=== PATIENT | male | born 1960 | race Hispanic/Latino ===

== ENCOUNTER 2016-10-01 17:20 | Emergency (ER) | payer SELFPAY ==
--- NOTE | 2016-10-01 17:46 | ED.PDOC ---
History of Present Illness - General Chief Complaint: Cardiovascular Problem Stated Complaint: low back /neck pain Time Seen by Provider: 10/01/16 17:44 Source: patient - History of Present Illness Initial Comments: Jaison Gordon 56 y/o male stated that he had dull low back pains thursday which went away then yesterday had started having neck pains radiating to back of his head .No Nausea/vomiting ,blurry vision or chest pains.He stated no chronic medical problems. Timing/Duration: intermittent, resolved prior to arrival, other - see hpi Improving Factors: nothing Worsening Factors: nothing Associated Symptoms: denies symptoms Allergies/Adverse Reactions: Allergies NO KNOWN ALLERGY Allergy (Verified 10/01/16 17:48) Home Medications: Ambulatory Orders NK [NK] 10/01/16 Review of Systems - Review of Systems Constitutional: States: no symptoms reported EENTM: States: no symptoms reported Respiratory: States: no symptoms reported Cardiology: States: no symptoms reported Gastrointestinal/Abdominal: States: no symptoms reported Genitourinary: States: no symptoms reported Musculoskeletal: States: see HPI, muscle pain Skin: States: no symptoms reported Neurological: States: no symptoms reported Endocrine: States: no symptoms reported Family Medical History - Family History Mother Hx Family Hypertension: Yes Hx Family Stroke: Yes - dad-? brain aneurysm Physical Exam - Physical Exam General Appearance: Alert, Comfortable, No apparent distress Eye Exam: bilateral normal, bilateral other - no papilledema Ears, Nose, Throat: hearing grossly normal, normal ENT inspection Respiratory: chest non-tender, lungs clear, normal breath sounds Cardiovascular/Chest: normal peripheral pulses, regular rate, rhythm, no murmur Peripheral Pulses: radial,right: 1+, radial,left: 1+ Gastrointestinal/Abdominal: normal bowel sounds, non tender, soft Back Exam: normal inspection, no CVA tenderness, no vertebral tenderness Extremity: normal range of motion, non-tender, no pedal edema, no calf tenderness Neurologic: no motor/sensory deficits, alert, normal mood/affect Skin Exam: normal color, warm/dry Lymphatic: no adenopathy Progress - Progress Progress: 10/01/16 22:22 Vital Signs 10/01/16 10/01/16 10/01/16 17:25 17:35 19:09 Temperature 98.5 F Pulse Rate [ 113 H 110 H Left Radial] Pulse Rate [ 92 H 94 H monitor] Respiratory 20 16 16 Rate Blood Pressure 214/106 200/109 199/93 [Left Arm] O2 Sat by Pulse 99 99 99 Oximetry Laboratory Tests 10/01/16 10/01/16 10/01/16 18:01 18:01 19:00 WBC 5.7 RBC 3.39 L Hgb 10.1 L Hct 30.0 L MCV 88.6 MCH 29.7 MCHC 33.5 RDW 12.7 Plt Count 184 MPV 8.0 Absolute Neuts (auto) 4.20 Absolute Lymphs (auto) 0.90 L Absolute Monos (auto) 0.40 Absolute Eos (auto) 0.20 Absolute Basos (auto) 0.00 Neutrophils % 73.9 Lymphocytes % 15.3 L Monocytes % 7.4 Eosinophils % 2.6 Basophils % 0.8 PT 10.2 INR 0.900 PTT (SP) 27.6 D-Dimer, Quantitative < 200 Sodium 134 L Potassium 4.2 Chloride 103 Carbon Dioxide 19 L Anion Gap 16.2 BUN 70 H Creatinine 6.65 H* BUN/Creatinine Ratio 10.5 Random Glucose 137 H Serum Osmolality 290.9 Calcium 8.5 Magnesium 2.3 Total Bilirubin 0.5 Direct Bilirubin < 0.1 Indirect Bilirubin 0.4 AST 18 ALT 13 Alkaline Phosphatase 55 Creatine Kinase 169 CK-MB (CK-2) 4.0 CK-MB (CK-2) % Not Reportable Troponin I < 0.02 B-Natriuretic Peptide 90.3 Serum Total Protein 7.2 Albumin 4.0 Urine Color Colorless Urine Appearance Cloudy Urine pH 6.5 Ur Specific [place] 1.010 Urine Protein 100 H Urine Glucose (UA) Negative Urine Ketones Negative Urine Blood Moderate H Urine Nitrite Negative Urine Bilirubin Negative Urine Urobilinogen 0.2 Ur Leukocyte Esterase Moderate H Urine RBC 5-10 H Urine WBC 20-30 H Ur Epithelial Cells 0-1 Urine Bacteria 3+ H - EKG/XRAY/CT CT Ordered: Yes - abd /pelvis lencho. nephrolithiasis,gas left ureter,urinary bladder Departure - Departure Clinical Impression: Renal failure (ARF), acute on chronic Qualifiers: Acute renal failure type: with other specified pathological lesion Chronic kidney disease stage: stage 4 (severe) Qualified Code(s): N17.8 - Other acute kidney failure Time of Disposition: 01:36 Disposition: Transfer to Hospital Condition: Fair Departure Forms: Patient Portal Self Enrollment Home Medications: Ambulatory Orders NK [NK] 08/09/17 Transfer to Outside Facility - Transfer Information Accepting Facility: [facility] Reason for Transfer: required specialist not available
[2016-10-01] MEDS ORDERED: ASPIRIN TABLET 325 MG TAB PO ONE (17:48)
[2016-10-01] MEDS ORDERED: NITROGLYCERIN 0.4 MG 25 EA TAB SL ONE (17:48)
--- NOTE | 2016-10-01 18:15 | RAD ---
EXAM DESCRIPTION: Chest,2 Views CLINICAL HISTORY: 56 years Male pain COMPARISON: None. FINDINGS: The cardiomediastinal silhouette appears unremarkable. No consolidating infiltrates or pleural effusions. No pneumothorax. There is a 7 mm nodular density overlying the anterior fifth rib on the right. Findings may reflect a nipple shadow. Recommend films with nipple markers. Underlying pulmonary nodule is not excluded. IMPRESSION: No acute abnormality is identified. Nodule in the right lung overlying the anterior fifth rib. Recommend films with nipple markers. Electronically signed by: Nu Mckay 10/01/2016 6:14 PM CDT
[2016-10-01] MEDS ORDERED: SODIUM BICARBONATE IVS PRN (19:09)
[2016-10-01] MEDS ORDERED: NACL 0.45% IVS PRN (19:09)
[2016-10-01] MEDS ORDERED: DEX 5% IVS PRN (19:09)
[2016-10-01] MEDS ORDERED: amLODIPine BESYLATE 5 MG TAB PO ONE (19:11)
[2016-10-01] MEDS ORDERED: LABETALOL INJ 5 MG/ML VIAL IV ONE ×2 (19:11→22:23)
[2016-10-01] MEDS ORDERED: DEX 5% W/NACL 0.45% 1000ML 1,000 ML IVS ONE (19:16)
[2016-10-01] MEDS ORDERED: SODIUM BICARBONATE SYRINGE 50 MEQ/50 ML SYG IV ONE (19:18)
[2016-10-01 19:38] VITALS: TEMP 98.5
--- NOTE | 2016-10-01 19:44 | CT ---
EXAM DESCRIPTION: Abdomen/Pelvis w/o Contrast CLINICAL HISTORY: 56 years Male renal failure/htn COMPARISON: None. TECHNIQUE: Contiguous axial images obtained through the abdomen and pelvis without IV contrast. Reformatted images obtained. This exam was performed according to our department optimization program which includes automated exposure control, adjustment of the mA and/or kv according to patient size and/or use of iterative reconstruction technique. FINDINGS: The lung bases are clear. There is a simple cyst in the inferior right lobe of the liver measuring 2 cm. The spleen and pancreas appear unremarkable. No adrenal masses. There is extensive scarring in the superior pole of the right kidney with multiple calculi. No evidence of hydronephrosis. Extensive staghorn calculi in the left kidney with gas in the renal collecting system. Findings may reflect infection or be related to instrumentation. Cystic dilatation in the inferior and superior poles left kidneys which may reflect caliectasis with areas of scarring present. No obstructive uropathy. Bladder gas which may related to infection or instrumentation. The gallbladder is visualized. No aneurysmal dilatation of the aorta. No bowel obstruction. No free pelvic fluid. IMPRESSION: Extensive bilateral renal calculi particularly on the left with large staghorn calculi There is gas in the urinary bladder and in the left renal collecting system. Question as a result of infection versus instrumentation. Pyonephrosis is not excluded Areas of scarring in the kidneys bilaterally with calyceal dilatation on the left which may be as a result of infundibular obstruction Electronically signed by: Nu Mckay 10/01/2016 7:43 PM CDT
[2016-10-01] MEDS ORDERED: MEROPENEM 500 MG in SODIUM CHL 0.9% 50ML MIN-BAG+ 50 ML IVPB ONE (20:44)
[2016-10-01] MEDS ORDERED: SODIUM CHL 0.9% 50ML MIN-BAG+ 50 ML IVPB ONE (21:26)
[2016-10-01] MEDS ORDERED: MEROPENEM 500 MG VIAL IVPB ONE (21:26)
[2016-10-02 01:19] VITALS: O2SAT 98
[2016-10-02] MEDS ORDERED: amLODIPine BESYLATE 5 MG TAB PO ONE (01:55)
[2016-10-02 02:37] VITALS: BP 159/84
== END 2016-10-02 02:37 | disposition short-term general hospital (02) ==
LOC: ER 17:20
DX: N20.0 Calculus of kidney (principal); I12.9 Hypertensive chronic kidney disease with stage 1 through stage 4 chronic kidney disease, or unspecified chronic kidney disease; N18.4 Chronic kidney disease, stage 4 (severe); N17.9 Acute kidney failure, unspecified
CPT/HCPCS: 36415; 71020; 74176; 80048; 80076; 81001; 82550; 82553; 83880; 84484; 85025; 85379; 85610; 85730; 87086; 87088; 87186; 93005; J2185; J7050; J7799

== ENCOUNTER → 2016-11-05 | Outpatient (CLI) | payer SELFPAY | END | disposition home or self-care (01) | LOC: LAB.O 12:01 | PROVIDERS: ATTEND Internal Medicine Nephrology | DX: N18.4 Chronic kidney disease, stage 4 (severe) (principal) ==